=== PATIENT | male | born 1975 | race Caucasian/White ===

== ENCOUNTER 2025-03-01 13:29 | Outpatient (OUT) | payer OTHER, SELFPAY ==
--- NOTE | 2025-03-01 13:37 | ECG_ITS ---
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 Measurements Intervals [place] Rate: 79 P: 35 MN: 169 QRS: -16 QRSD: 109 T: 4 QT: 379 QTc: 435 Interpretive Statements SINUS RHYTHM INFERIOR INFARCT, AGE INDETERMINATE Abnormal ECG No previous ECG available for comparison Electronically Signed On 03-01-2025 23:03:35 EDT by LEILANI CORREIA M.D.
--- NOTE | 2025-03-01 14:17 | PM.PRESUREVA ---
History of Present Illness History of Present Illness Chief complaint: Right Ureteral Stone with [place] Narrative: Patient presents for presurgical testing. Please see HPI from Dr. Mcdaniels dated February 27, 2025. Review of Systems ROS Narrative Please see ROS from Dr. Mcdaniels dated February 27, 2025. 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 Alcoholism ?F10.20 - Alcohol dependence, uncomplicated (ICD-10) PTSD (post-traumatic stress disorder) ?F43.10 - Post-traumatic stress disorder, unspecified (ICD-10) Migraine ?G43.909 - Migraine, unspecified, not intractable, without status migrainosus (ICD-10) Supraventricular tachycardia ?I47.10 - Supraventricular tachycardia, unspecified (ICD-10) Left hemiparesis ?G81.94 - Hemiplegia, unspecified affecting left nondominant side (ICD-10) Tremor ?R25.1 - Tremor, unspecified (ICD-10) Chondromalacia ?M94.20 - Chondromalacia, unspecified site (ICD-10) Inguinal hernia ?K40.90 - Unilateral inguinal hernia, without obstruction or gangrene, not specified as recurrent (ICD-10) Raynaud's syndrome ?I73.00 - Raynaud's syndrome without gangrene (ICD-10) Paroxysmal tachycardia ?I47.9 - Paroxysmal tachycardia, unspecified (ICD-10) Sleep apnea ?G47.30 - Sleep apnea, unspecified (ICD-10) Anxiety ?F41.9 - Anxiety disorder, unspecified (ICD-10) Depression ?F32.A - Depression, unspecified (ICD-10) Back pain ?M54.9 - Dorsalgia, unspecified (ICD-10) Hypogonadism Hyperlipidemia ?E78.5 - Hyperlipidemia, unspecified (ICD-10) GERD (gastroesophageal reflux disease) ?K21.9 - Gastro-esophageal reflux disease without esophagitis (ICD-10) Hypertension ?I10 - Essential (primary) hypertension (ICD-10) Knee pain ?M25.569 - Pain in unspecified knee (ICD-10) Colitis ?K52.9 - Noninfective gastroenteritis and colitis, unspecified (ICD-10) Carpal tunnel syndrome ?G56.00 - Carpal tunnel syndrome, unspecified upper limb (ICD-10) Hydronephrosis ?N13.30 - Unspecified hydronephrosis (ICD-10) Right ureteral stone ?N20.1 - Calculus of ureter (ICD-10) Surgical History (Updated 03/01/25 @ 14:00 by Esmer Hernandez NP) History of cardiac radiofrequency ablation ?Z98.890 - Other specified postprocedural states (ICD-10) History of loop recorder ?Z98.890 - Other specified postprocedural states (ICD-10) History of nasal septoplasty ?Z98.890 - Other specified postprocedural states (ICD-10) History of repair of rotator cuff ?Z98.890 - Other specified postprocedural states (ICD-10) History of hip surgery ?Z98.890 - Other specified postprocedural states (ICD-10) H/O shoulder surgery ?Z98.890 - Other specified postprocedural states (ICD-10) H/O knee surgery ?Z98.890 - Other specified postprocedural states (ICD-10) History of hernia repair ?Z98.890 - Other specified postprocedural states (ICD-10) ?Z87.19 - Personal history of other diseases of the digestive system (ICD-10) Family History (Updated 03/01/25 @ 13:57 by Esmer Hernandez NP) Other Family history of brain cancer Family history of hypertension Family history of myocardial infarction Family history of prostate cancer Social History (Updated 03/01/25 @ 13:51 by Esmer Hernandez NP) Within the past year, how often did you have a drink containing alcohol: 2-3 times a week Smoking status: Never smoker Do you use any of these nicotine containing products: smokeless tobacco Non-prescribed substance use: denies use Previous occupational history: Disabled [employer] Highest level of school completed/degree received: high school graduate Meds Home Medications and Allergies Home Medications ?Medication ?Instructions ?Recorded ?Confirmed ?Type atorvastatin 10 mg tablet 10 mg PO DAILY 03/01/25 03/01/25 History clonidine 0.3 mg/24 hr weekly 1 patch transdermal QWEEK 03/01/25 03/01/25 History transdermal patch ([id number]-[id number]) ketamine 100 mg/2 mL (50 mg/mL) 100 mg IV .[id number] 03/01/25 03/01/25 History intravenous syringe tamsulosin 0.4 mg capsule 0.4 mg PO Q24H 03/01/25 03/01/25 History topiramate 100 mg tablet (Topamax) 100 mg PO TID mood stabilizer 03/01/25 03/01/25 History tramadol 50 mg tablet 50 mg PO Q6H 03/01/25 03/01/25 History trazodone 100 mg tablet 100 mg PO QPM PRN sleep 03/01/25 03/01/25 History trospium 20 mg tablet 20 mg PO DAILY PRN overactive 03/01/25 03/01/25 History bladder Allergies Allergy/AdvReac Type Severity Reaction Status Date / Time No Known Drug Allergies Allergy Verified 03/01/25 13:47 Exam Narrative Exam Narrative: Constitutional: Awake, alert, comfortable, well-appearing, nontoxic, interactive, vital signs as charted Head: Normocephalic, atraumatic Neck: Supple, normal appearance, normal range of motion, no meningeal signs, no lymphadenopathy Respiratory: No respiratory distress, breath sounds clear Cardiovascular: Regular rate and rhythm, strong and regular heart tones Abdomen: Nontender, normal bowel sounds, soft, no CVA tenderness Musculoskeletal: Normal gait, no swelling or edema Skin: No rashes or induration, no lesions, only visible skin inspected Neuro: No neurological deficits, normal sensation Psychiatric: Oriented ?3, normal affect Assessment and Plan Assessment and Plan (1) Right ureteral stone: (2) Hydronephrosis: Plan Cystoscopy, right retrograde, right ureteroscopy, holmium laser, possible right stent placement, scheduled with Dr. Mcdaniels March 02, 2025.
[2025-03-01 14:35] LABS: Basophils Percent Auto 0.7 % (0.2-2.0); Eosinophils Absolute Auto 0.1 10^3/uL (0.0-0.7); Eosinophils Percent Auto 1.1 % (0.9-7.0); Hematocrit 46.4 % (42.0-54.0); Hemoglobin 16.6 g/dL (14.0-18.0); Immature Granulocytes Abs Auto 0.01 10^3/uL (0.00-0.03); Immature Granulocytes Pct Auto 0.2 % (0.0-0.5); Lymphocytes Absolute Auto 1.1 10^3/uL (1.2-3.8); Mean Corpuscular HGB Conc 35.8 g/dL (29.9-35.2); Mean Corpuscular Hemoglobin 32.2 pg (25.9-34.0); Mean Corpuscular Volume 90.1 fL (80.0-94.0); Mean Platelet Volume 11.1 fL (9.5-13.5); Monocytes Absolute Auto 0.5 10^3/uL (0.3-0.8); Monocytes Percent Auto 9.8 % (1.7-12.0); Neutrophils Absolute Auto 3.7 10^3/uL (1.4-6.5); Neutrophils Percent Auto 68.2 % (43.0-75.0); Platelet Count 212 10^3/uL (150-450); Red Blood Count 5.15 10^6/uL (4.70-6.10); Red Cell Distribution Width 11.6 % (11.0-15.0); White Blood Count 5.4 10^3/uL (4.0-11.0)
[2025-03-01 14:50] LABS: INR 1.08; Partial Thromboplastin Time 27.6 sec (22.3-36.2); Prothrombin Time 11.4 sec (9.0-11.6)
[2025-03-01 14:51] LABS: Anion Gap 5.8; BUN Creatinine Ratio 18.1; Carbon Dioxide 30.9 mmol/L (21.0-32.0); Chloride 109 mmol/L (98-107); Estimated GFR (African America >60 (>=60 mL/min/1.73m^2); Estimated GFR (Non-African Ame >60 (>=60 mL/min/1.73m^2); Glucose 105 mg/dL (74-106); Potassium 4.7 mmol/L (3.5-5.1); Sodium 141 mmol/L (136-145)
== END 2025-03-01 13:30 | disposition home or self-care (01) ==
LOC: PST 13:34
PROVIDERS: Visit Provider Urology
DX: Z01.810 Encounter for preprocedural cardiovascular examination (principal); Z01.812 Encounter for preprocedural laboratory examination; Z01.818 Encounter for other preprocedural examination; N20.1 Calculus of ureter
CPT/HCPCS: 80048; 85025; 85610; 85730; 93005; G0463

== ENCOUNTER 2025-03-02 12:13 | Day surgery (SDC) | payer OTHER, SELFPAY ==
[2025-03-01 14:08] VITALS: BP 123/80; PULSE 78; TEMP 36.4; O2SAT 98; BMI 26.7
[2025-03-02] VITALS (8 sets, daily range): BP systolic 102–130; BP diastolic 63–89; PULSE 61–87; TEMP 36.4–36.6; O2SAT 92–98; BMI 26.8
[2025-03-02] MEDS: LACTATED RINGER'S SOLUTION 1,000 ML 50 ML IV (12:42)
[2025-03-02] MEDS: CEFAZOLIN SODIUM 2 GM/50 ML D5W PREMIX IV (13:43)
--- NOTE | 2025-03-02 14:17 | P.URON_ITS ---
Urology Surgery Operative Note Operative Note Procedure Date: 03/02/25 Time Out Performed: yes Pre-op Diagnosis: Right flank pain and distal right ureteral calculus Post-op Diagnosis: other (Passed distal right ureteral calculus. Distal right ureteral stricture) Procedures performed: 1. Cystoscopy. 2. Right rigid ureteral dilation of ureteral stricture. 3. Right ureteroscopy. 4. Placement of 6 Norwegian variable length right ureteral stent Anesthesia: General-LMA Primary Surgeon: Jamie Mcdaniels Complications: None Estimated blood loss (mL): 0 Findings: 1. Normal bladder. 2. Distal right ureteral stricture. 3. Mid and proximal right ureteral inflammatory debris Specimens: None Drains: 6 [place] variable length right ureteral stent Indications for Procedures: This gentleman has right flank pain. He had a CAT scan which showed distal right ureteral 2 to 3 mm stone and ipsilateral hydroureteronephrosis. He has been unable to pass the stone. He now presents for definitive ureteroscopic laser lithotripsy and possible right stent placement. He has signed an informed consent after risks were explained. Detailed description of Procedure: The patient was brought to the operating room and placed on the operating room table in the supine position. SCDs were placed on the lower extremities and turned on and functioning during the entire case. Timeout was done by all parties in the room. We all agreed upon the patient's identification and the planned procedures for this patient. Genn. anesthesia was then administered. The patient was then repositioned into the modified dorsal lithotomy position. All pressure points were satisfactorily padded. Genitalia were sterilely prepped and draped in usual fashion. I started by passing a 22 Norwegian Olympus cystoscope per urethra and into the bladder. Anterior urethra was normal. Prostate revealed bilobar hypertrophy. Panendoscopy in the bladder showed no evidence of any tumors, stones or lesions. I then passed a Glidewire through the scope and up the right ureter. I then saw an immediate E flux of cloudy inflammatory debris. I then used rigid dilators and dilated his distal right ureter up to 10 Norwegian. I then removed the cystoscope and passed a semirigid ureteroscope adjacent to the wire and up the right ureter. Copious amounts of inflammatory debris from a partial or total obstruction from the stricture was noted. I ascended up to the L5 level and back. There was no evidence of stone but a segment of approximately 2 cm was significantly strictured down in the distal ureter. The scope was then removed. I then backloaded the cystoscope over the wire and passed it into the bladder and then slid a 6 Norwegian variable length stent over the wire up into the kidney. The wire was removed and there were good curls in the kidney and in the bladder. 1 could see a fairly significant high-pressure E flux of cloudy debris coming out around and through the stent into the bladder. The patient was then transferred [facility] a [facility] and wheeled to PACU in stable condition.
[2025-03-02] MEDS: SOLIFENACIN SUCCINATE 10 MG TABLET PO (14:32)
[2025-03-02] MEDS: KETOROLAC TROMETHAMINE 30 MG/ML VIAL IVP (14:40)
--- NOTE | 2025-03-02 14:46 | PC.NURSE ---
Given urinal due to urge to void
--- NOTE | 2025-03-02 14:57 | PC.NURSE ---
Urinal in place; has not voided
--- NOTE | 2025-03-02 14:59 | PC.NURSE ---
Urinal in place and has not voided; standing at bedside
--- NOTE | 2025-03-02 15:28 | PC.NURSE ---
Voided pink tinged urine without clots
== END 2025-03-02 15:29 | disposition home or self-care (01) ==
PROVIDERS: Visit Provider Urology
PROC: (CPT 00910; principal; 2025-03-02 13:00)
DX: N13.2 Hydronephrosis with renal and ureteral calculous obstruction (principal); N13.5 Crossing vessel and stricture of ureter without hydronephrosis; Z87.891 Personal history of nicotine dependence; Z96.649 Presence of unspecified artificial hip joint; Z96.659 Presence of unspecified artificial knee joint; E78.5 Hyperlipidemia, unspecified; I10 Essential (primary) hypertension; K21.9 Gastro-esophageal reflux disease without esophagitis
CPT/HCPCS: 00910; 52332; 52344; 36415; 76000; J0690; J1885; J2250; J2704; J3010